=== PATIENT | female | born 1975 | race Caucasian/White ===

== ENCOUNTER 2016-09-08 18:41 | Emergency (ER) | payer OTHER ==
--- NOTE | 2016-09-08 19:56 | EDPHY ---
H & P Stated Complaint: chronic pain middle & upper back Time Seen by Provider: 09/08/16 19:18 HPI/ROS: CHIEF COMPLAINT: Back pain HISTORY OF PRESENT ILLNESS: This is a 40-year-old female presenting to the emergency department complaining of increase spine back pain with spasm. Patient states she does have a history of chronic back pain. Patient's has a report with her from an MRI done on 10/28/2015 which shows a tiny syrinx at C5- C6, with mild cervical spine degenerative disc disease at C5 through C7 facet arthrosis at C7 through T1. Patient states she flew to [facility] on 07/30/16 to see a doctor of osteopathy, she started on K laser ultrasound therapy to help if it would decrease the amount of pain she is having in her back. patient stated the flight going was 10 hours with a lay over and then an additional 4 hour flight she started having increased back pain at that time, since her visit there she has been increase having back pain with noticeable changes since around 08/28/16, new symptoms have been ataxia, generalized weakness she feels she has been having increased back spasms. She called her primary care physician while she was in [facility] and stated she needed to come home as soon as she could come to the ER for an MRI. Patient returned from [facility] 4 hours prior to arrival. Denies any chest pain or shortness of breath REVIEW OF SYSTEMS: Constitutional: No fever, no chills. Eyes: No discharge. Intermittent blurred vision ENT: No sore throat. Cardiovascular: No chest pain, no palpitations. Respiratory: No cough, no shortness of breath. Gastrointestinal: No abdominal pain, no vomiting. Genitourinary: No hematuria. No bowel or bladder incontinence Musculoskeletal: Adtbbrwu-fpafdltu-ffifps back pain, back spasms difficulty ambulating Skin: No rashes. Neurological: No headache. Source: Patient, Old records - Personal History LMP (Females 10-55): 1-7 Days Ago Current Tetanus/Diphtheria Vaccine: Yes Current Tetanus Diphtheria and Acellular Pertussis (TDAP): Yes - Medical/Surgical History Hx Asthma: No Hx Chronic Respiratory Disease: No Hx Diabetes: No Hx Cardiac Disease: No Hx Renal Disease: No Hx Cirrhosis: No Hx Alcoholism: No Hx HIV/AIDS: No Hx Splenectomy or Spleen Trauma: No Other PMH: torticollis, asthma, migraines, chronic pain - Social History Smoking Status: Never smoked - Physical Exam Exam: General Appearance: Alert, no distress. HEENT: Normocephalic atraumatic Pupils equal and round no pallor or injection. Mucous membranes moist. Respiratory: There are no retractions, lungs are clear to auscultation. Cardiovascular: Regular rate and rhythm. Gastrointestinal: Abdomen is soft and nontender, no masses, bowel sounds normal. Neurological: No focal deficits. All cranial nerves intact, but unable to ambulate without assistance generalized weakness. Answering questions appropriately Skin: Warm and dry, no rashes. Musculoskeletal: Vertebral cervical spine nontender on palpation, thoracic vertebral tenderness on palpation with paraspinal muscle spasms noted Extremities: symmetrical, full range of motion. Bilateral upper extremity 4/ 4. Bilateral lower extremity4/4 Psychiatric: Patient is oriented X 3, acting appropriately Constitutional: Initial Vital Signs Temperature (C) 36.5 C 09/08/16 18:44 Heart Rate 85 09/08/16 18:44 Respiratory Rate 16 09/08/16 18:44 Blood Pressure 143/79 H 09/08/16 18:44 O2 Sat (%) 97 09/08/16 18:44 O2 Delivery Mode Room Air Allergies/Adverse Reactions: acetaminophen [From Tylenol-Codeine #3] Allergy (Verified 11/01/15 17:18) codeine phosphate [From Tylenol-Codeine #3] Allergy (Verified 11/01/15 17:18) latex Allergy (Verified 11/01/15 17:18) Penicillins Allergy (Verified 11/01/15 17:17) Home Medications: Medication Instructions Recorded Diazepam [Valium 5 MG (*)] 5 mg PO TID PRN #20 tab 11/01/15 Diazepam [Valium 5 MG (*)] 5 mg PO TID PRN #20 tab 11/01/15 ETODOLAC 11/01/15 HYDROcodone/APAP 10/325 [[place] 1 - 2 each PO Q4-6PRN PRN #20 tab 11/01/15 10/325] HYDROcodone/APAP 10/325 [[place] 1 - 2 each PO Q4-6PRN PRN #20 tab 11/01/15 10/325] Valium 11/01/15 Vicodin 5-300 mg Tablet 11/01/15 Diazepam [Valium 5 MG (*)] 5 mg PO BID PRN #10 tab 09/08/16 Hydrocodone/APAP 5/325 [[place] 1 - 2 tab PO Q4H PRN #10 tab 09/08/16 5/325 (*)] Medical Decision Making - Diagnostics Imaging Results: Imaging Impressions Cervical Spine MRI 09/08/16 20:01 Impression: 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 Edna Valerio was called at 2210 hours. Lumbar Spine MRI 09/08/16 20:01 Impression: : Normal MRI of the lumbar spine. Thoracic Spine MRI 09/08/16 20:01 Impression: Normal. Edna Valerio was called at 10:15 p.m. ED Course/Re-evaluation: Discussed the plan of care: MRI gvsianls-qzzdyhzj-suxsxw spine, pain meds 2210: Spoke with Dr. Jimenez, no narrowing of the spinal canal on MRI, bulging disc at C5-C6 no herniation. Discussed results with patient 2230: Patient ambulatory without assist to the bathroom, reports decrease in muscle spasms and paresthesia. AAO x3. No focal deficits. Discharge home---> stable, discussed discharge instructions with patient Differential Diagnosis: Other differential diagnosis considered but not limited to herniated disc, spinal stenosis, and spinal canal narrowing - Data Points Medications Given: Discontinued Medications Hydrocodone Bitart/Acetaminophen ([place] 10/325) 1 tab PO EDNOW ONE Stop: 09/08/16 20:02 Last Admin: 09/08/16 20:10 Dose: 1 tab Hydrocodone Bitart/Acetaminophen ([place] 5/325) 1 tab PO EDNOW ONE Stop: 09/08/16 22:28 Last Admin: 09/08/16 22:45 Dose: 1 tab Diazepam (Valium) 5 mg PO EDNOW ONE Stop: 09/08/16 20:03 Last Admin: 09/08/16 20:10 Dose: 5 mg Departure - Departure Disposition: Home, Routine, Self-Care Clinical Impression: Chronic high back pain, Muscle spasm of back Condition: Good Instructions: Muscle Spasm (ED), Chronic Back Pain (ED), Lower Back Exercises ( ED) Additional Instructions: 1. heating pad to area as needed. Remove lidocaine patch before using heating pad as this can burner skin 2. Recommend following up with primary care tomorrow 3. He was sent with a CD of MRIs performed this evening to give tear primary care provider 4. If at any point time symptoms worsen your unable to walk, numbness and tingling to her lower extremities, loss of bowel and bladder function return to the emergency department Referrals: [facility] [Other] - As per Instructions Prescriptions: Diazepam [Valium 5 MG (*)] 5 mg PO BID PRN #10 tab PRN Reason: Spasms Hydrocodone/APAP 5/325 [[place] 5/325 (*)] 1 - 2 tab PO Q4H PRN #10 tab PRN Reason: Pain, Moderate
[2016-09-08] MEDS ORDERED: HYDROCODONE/APAP 10/325 TAB PO ONE (20:01)
[2016-09-08] MEDS ORDERED: DIAZEPAM 5 MG TAB PO ONE (20:02)
[2016-09-08] MEDS ORDERED: HYDROCODONE/APAP 5/325 TAB PO ONE (22:27)
[2016-09-08] MEDS ORDERED: LIDOCAINE 5% 1 EA PATCH TD ONE (22:53)
[2016-09-08 23:17] VITALS: BP 125/93; PULSE 81; RESP 20; TEMP 98.1; O2SAT 95
[2016-09-09] MEDS ORDERED: LIDOCAINE 5% 1 EA PATCH TD SCH (09:00)
[2016-09-09] MEDS ORDERED: PATCH REMOVAL 1 EA PATCH TD SCH (21:00)
== END 2016-09-08 23:17 | disposition home or self-care (01) ==
DX: M54.6 Pain in thoracic spine (principal); G89.29 Other chronic pain; M62.838 Other muscle spasm; J45.909 Unspecified asthma, uncomplicated; Z91.040 Latex allergy status

== ENCOUNTER 2017-01-26 15:52 | Emergency (ER) | payer OTHER ==
[2017-01-26 16:04] VITALS: BP 114/75; PULSE 87; RESP 18; TEMP 99; O2SAT 97
--- NOTE | 2017-01-26 16:44 | EDPHY ---
H & P Time Seen by Provider: 01/26/17 16:34 HPI/ROS: CHIEF COMPLAINT: Left index finger laceration HISTORY OF PRESENT ILLNESS: Cut just before arrival while cutting a dog treat in half. REVIEW OF SYSTEMS: No weakness or numbness distally and no foreign body sensation PAST MEDICAL HISTORY: Includes torticollis, asthma, migraines Social history: Leaving for [employer] for a week this weekend. General Appearance: Alert and conversant, cooperative. 1 cm total flap laceration on the dorsal surface of the left index PIP. Normal 2 point discrimination distally. Normal capillary refill. Normal FDS and FDP and extensor tendon function. She can maintain an extended finger against forceful flexion applied by myself. Emergency Department course/MDM: Procedure: Laceration repair. Verbal consent was obtained from the patient. The 1 cm laceration on the left index was anesthetized using 0.5% bupivacaine with out epinephrine. The wound was irrigated with standard emergency department protocol, draped and explored. There were no deep structures involved. 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 No foreign body found. The wound was repaired with 5 0 Prolene. The wound repair was simple. Excellent hemostasis was obtained. Wound care instructions were discussed and the patient was warned regarding scarring. The procedure was performed by myself. Patient was warned of possible extensor tendon laceration. Antibiotics discussed and consented. Phone consultation with Dr. Fara Wolff who was on-call for hand; 1724, splint in extension, follow-up in the office in 10 days when she returns from [place]. Smoking Status: Never smoked Constitutional: Initial Vital Signs Temperature (C) 37.2 C 01/26/17 16:02 Heart Rate 87 01/26/17 16:02 Respiratory Rate 18 01/26/17 16:02 Blood Pressure 114/75 01/26/17 16:02 O2 Sat (%) 97 01/26/17 16:02 O2 Delivery Mode Room Air Allergies/Adverse Reactions: acetaminophen [From Tylenol-Codeine #3] Allergy (Verified 11/01/15 17:18) codeine phosphate [From Tylenol-Codeine #3] Allergy (Verified 11/01/15 17:18) erythromycin base Allergy (Verified 01/26/17 15:58) gabapentin Allergy (Verified 01/26/17 15:58) latex Allergy (Verified 11/01/15 17:18) penicillin G Allergy (Verified 01/26/17 15:58) Penicillins Allergy (Verified 11/01/15 17:17) Home Medications: Medication Instructions Recorded Cardizem 01/26/17 Clindamycin HCl [Clindamycin] 300 mg PO TID #21 cap 01/26/17 Cymbalta 01/26/17 Meloxicam 01/26/17 Methocarbamol 01/26/17 Vicodin 5-300 mg Tablet 01/26/17 morphINE IR 15 mg (*) 01/26/17 MDM/Departure - Depart Disposition: Home, Routine, Self-Care Clinical Impression: Laceration of left index finger Qualifiers: Encounter type: initial encounter Damage to nail status: without damage Foreign body presence: without foreign body Qualified Code(s): S61.211A - Laceration without foreign body of left index finger without damage to nail, initial encounter Extensor tendon laceration of finger with open wound Qualifiers: Encounter type: initial encounter Qualified Code(s): S66.529A - Laceration of intrinsic muscle, fascia and tendon of unspecified finger at wrist and hand level, initial encounter Condition: Good Instructions: Care For Your Stitches (ED), Laceration (ED) Additional Instructions: Wound Care Follow-Up: Removal of sutures in 10 days. Suture removal is complimentary in uncomplicated cases. Infection or abnormal findings would require reevaluation by the MD. In that case, you may be billed. Prescriptions: Clindamycin HCl [Clindamycin] 300 mg PO TID #21 cap Referrals: [facility] [Other] - As per Instructions Fara Wolff MD [Medical Doctor] - 02/06/17 (Follow-up in 10 days, as soon as you return from your trip to [place]. Wear splint at all times, do not remove.)
[2017-01-26] MEDS ORDERED: CLINDAMYCIN 150MG PREPACK#6 BTL TAKEHOME ONE (17:38)
== END 2017-01-26 17:45 | disposition home or self-care (01) ==
PROC: 0HQGXZZ Repair Left Hand Skin, External Approach (ICD-10-PCS; principal; 2017-01-26)
DX: S66.521A Laceration of intrinsic muscle, fascia and tendon of left index finger at wrist and hand level, initial encounter (principal); J45.909 Unspecified asthma, uncomplicated; Z91.040 Latex allergy status; W26.8XXA Contact with other sharp object(s), not elsewhere classified, initial encounter
CPT/HCPCS: L3925